=== PATIENT | male | born 1980 | race Caucasian/White ===

== ENCOUNTER 2019-08-04 17:00 | Emergency (ER) | payer SELFPAY ==
--- NOTE | 2019-08-04 17:03 | PDOC ---
Rapid Medical Evaluation Medical Evaluation: 08/04/19 17:02 I have performed a brief in-person evaluation of this patient. The patient presents with a chief complaint of:CP possible worse w/ po intake Pertinent physical exam findings:stable and well román w/ clear chest/lungs I have ordered the following:ekg The patient will proceed to the ED for further evaluation. Discharge Disposition - Diagnosis Chest pain Qualifiers: Chest pain type: unspecified Qualified Code(s): R07.9 - Chest pain, unspecified - Referrals - Patient Instructions - Post Discharge Activity
[2019-08-04 17:22] VITALS: BP 119/72; PULSE 86; TEMP 98.6; BMI 64.5
--- NOTE | 2019-08-04 18:57 | PDOC ---
History of Present Illness - General Chief Complaint: Chest Pain Stated Complaint: CHEST PAIN/ DIFFICLTY BREATHING Time Seen by Provider: 08/04/19 17:11 History Source: Patient Exam Limitations: No Limitations - History of Present Illness Initial Comments: 08/04/19 18:52 HISTORY OF PRESENT ILLNESS: This is an otherwise healthy 39-year-old male presents emergency Department with 4-5 days of left-sided chest pain. Patient reports pain is a constant pressure which she rates at 3/10 but worsens to a 6-7 /10 after he eats. Patient reports the pain had started after taking nonsteroidal medications due to recent dental work he had. Patient reports when he eats and the pain increases and last for approximately 1-1/2-2 hours before returning to his baseline of 3/10. He denies any fevers or chills since the dental procedure. He denies any cough, dizziness, nausea, vomiting or diaphoresis. No recent travel or sick contacts. PAST MEDICAL HISTORY: Denies past medical history SURGICAL HISTORY: Denies ALLERGIES: No known drug allergies REVIEW OF SYSTEMS General/Constitutional: Denies fever or chills. Denies weakness, weight change. HEENT: Denies change in vision. Denies ear pain or discharge. Denies sore throat. Cardiovascular: see HPI Respiratory: Denies cough, wheezing, or hemoptysis. Gastrointestinal: Denies nausea, vomiting, diarrhea or constipation. Denies rectal bleeding. Genitourinary: Denies dysuria, frequency, or change in urination. Musculoskeletal: Denies joint or muscle swelling or pain. Denies neck or back pain. Skin and breasts: Denies rash or easy bruising. Neurologic: Denies headache, vertigo, loss of consciousness, or loss of sensation. Psychiatric: Denies depression or anxiety. Endocrine: Denies increased thirst. Denies abnormal weight change. Hematologic/Lymphatic: Denies anemia, easy bleeding, or history of blood clots. Allergic/Immunologic: Denies hives or skin allergy. Denies latex allergy. PHYSICAL EXAM General Appearance: Well-appearing, appropriately dressed. No apparent distress , no intoxication. HEENT: EOMI, PERRLA, normal ENT inspection, normal voice, TMs normal, pharynx normal. No conjunctival pallor. No photophobia, scleral icterus. Neck: Supple. Trachea midline. No tenderness, rigidity, carotid bruit, stridor , lymphadenopathy, or thyromegaly. Respiratory/Chest: Lungs CTAB. No shortness of breath, chest tenderness, respiratory distress, accessory muscle use. No crackles, rales, rhonchi, stridor , wheezing, dullness Cardiovascular: RRR. S1, S2. No JVD, murmur, bradycardia, tachycardia. Gastrointestinal/Abdominal: Normal bowel sounds. Abdomen soft, non-distended. No tenderness or rebound tenderness. No organomegaly, pulsatile mass, guarding, hernia, hepatomegaly, splenomegaly. Integumentary: Appropriate color, dry, warm. No cyanosis, erythema, jaundice or rash Neurologic: manager mining II-XII intact. Fully oriented, alert. Appropriate mood/affect. Motor strength 5/5. No appreciable EOM palsy, facial droop or sensory deficit. Past History - Past Medical History COPD: No - Immunization History Immunization Up to Date: No - Suicide/Smoking/Psychosocial Hx Smoking History: Never smoked Have you smoked in the past 12 months: No Information on smoking cessation initiated: No Hx Alcohol Use: Yes Drug/Substance Use Hx: No *Physical Exam - Vital Signs Last Vital Signs Temp Pulse Resp BP Pulse Ox 98.6 F 86 18 119/72 100 08/04/19 17:20 08/04/19 17:20 08/04/19 17:20 08/04/19 17:20 08/04/19 17:20 Heart Score/ECG Review - History History: Slightly suspicious - Electrocardiogram EKG: Normal - Age Age: </= 45 - Risk Factors Based on the list above the patient has:: No risk factors known - Troponin Troponin: </= normal limit - Score Heart Score - Total: 0 ED Treatment Course - LABORATORY CBC & Chemistry Diagram: 08/04/19 20:08 08/04/19 20:08 - ADDITIONAL ORDERS Additional order review: 08/04/19 20:08 RBC 5.67 H MCV 85.1 MCHC 33.4 RDW 13.9 MPV 9.8 Neutrophils % 62.2 Lymphocytes % 26.6 Monocytes % 10.5 H Eosinophils % 0.1 Basophils % 0.6 - RADIOLOGY Radiology Studies Ordered: Category Date Time Status CHEST PA & LAT [RAD] Stat Radiology 08/04/19 19:20 Completed - Medications Given in the ED: ED Medications Discontinued Medications Generic Name Dose Route Start Last Admin Trade Name Freq PRN Reason Stop Dose Admin Al Hydroxide/Mg Hydroxide 30 ml 08/04/19 19:20 08/04/19 21:25 Mylanta Oral Suspension - PO 08/04/19 19:21 30 ml ONCE ONE Administration Famotidine/Sodium Chloride 20 mg in 50 mls @ 100 mls/hr 08/04/19 19:20 21:25 Pepcid 20 Mg Premixed Ivpb - IVPB 08/04/19 19:49 100 mls/hr ONCE ONE Administration Sodium Chloride 1,000 mls @ 1,000 mls/hr 08/04/19 19:20 08/04/19 21:25 Normal Saline - IV 08/04/19 20:19 1,000 mls/hr ASDIR STA Administration Medical Decision Making - Medical Decision Making 08/04/19 18:57 A/P: 39-year-old male with chest pain for 4 days H&P is consistent with gastritis brought on by NSAID use. He lives a little likelihood of infectious endocarditis given patient is afebrile here in light of dental work. Labs including cardiac profile and lipase Normal saline 1 L bolus Pepcid 20 mg IV Maalox 30 mL orally Chest x-ray EKG Reassess 08/04/19 22:56 EKG sinus rhythm with rate of 71. Normal intervals noted. No ischemic changes present. He Chest x-ray as read by me: Angles clear. Cardiac silhouette is within normal limits. Hypodense area presents in the right lung base. Lung markings present. No focal infiltrates or consolidations noted. Laboratory testing is unremarkable. I will discharge the patient home to follow-up with his primary doctor. I discussed the physical exam findings, ancillary test results and final diagnoses with the patient. I answered all of the patient's questions. The patient was satisfied with the care received and felt comfortable with the discharge plan and treatment plan. The patient will call their primary care physician within 24 hours to arrange follow-up and will return to the Emergency Department with any new, persistent or worsening symptoms. Portions of this note have been documented using voice recognition software. As a result, errors may occur in the vending route driver process. Effort has been made to correct all grammatical and vending route driver error, but some may have been missed. 08/04/19 23:31 *DC/Admit/Observation/Transfer Diagnosis at time of Disposition: Dyspepsia Chest pain Qualifiers: Chest pain type: unspecified Qualified Code(s): R07.9 - Chest pain, unspecified - Discharge Dispostion Disposition: HOME Condition at time of disposition: Stable Decision to Admit order: No - Referrals - Patient Instructions Printed Discharge Instructions: DI for Atypical Chest Pain Additional Instructions: Rest, drink lots of fluids: Teas, water, soups Vidhi aquiles, carbonated beverages for the bubbles May try peppermint teas Avoid heavy , spicy or fatty foods until symptoms have resolved Continue [id number] medications for symptomatic relief- Maalox, Mylanta Followup with your doctor in one to 2 days as needed Return to emergency department for worsened symptoms, fevers, dehydration - Post Discharge Activity
[2019-08-04] MEDS ORDERED: SODIUM CHLORIDE 1,000 ML IV STA (19:20)
[2019-08-04] MEDS ORDERED: MAG HYDROX/AL HYDROX/SIMETH 30 ML UNIT-DOSE CUP PO ONE (19:20)
[2019-08-04] MEDS ORDERED: FAMOTIDINE 20 MG/50 ML IVPB 20 MG/50 ML MG IVPB ONE ×2 (19:20→21:09)
--- NOTE | 2019-08-04 19:27 | PDOC ---
*Physical Exam - Vital Signs Last Vital Signs Temp Pulse Resp BP Pulse Ox 98.6 F 86 18 119/72 100 08/04/19 17:20 08/04/19 17:20 08/04/19 17:20 08/04/19 17:20 08/04/19 17:20 Heart Score/ECG Review - History History: Slightly suspicious - Electrocardiogram EKG: Normal - Age Age: </= 45 - Risk Factors Based on the list above the patient has:: No risk factors known - Troponin Troponin: </= normal limit - Score Heart Score - Total: 0 Medical Decision Making - Medical Decision Making 08/04/19 19:22 Pt seen with TOBIAS Yves, case reviewed and I agree with the assessment and management with the following summary: 39y/o M p/w 3-4 days heartburn in the setting of daily nsaid use, non- exertional and without SOB. no hematemesis/melena. vss exam as noted, lungs clear, heart normal epigastric discomfort without guarding/rebound 39y/o M with dyspepsia likely 2/2 nsaid use, atypical for ACS and has no risk factors. low risk by heart score. check labs including trop - single level reassuring in light of 3-4 days constant sxs GI meds reassess *DC/Admit/Observation/Transfer Diagnosis at time of Disposition: Dyspepsia Chest pain Qualifiers: Chest pain type: unspecified Qualified Code(s): R07.9 - Chest pain, unspecified - Discharge Dispostion Condition at time of disposition: Stable - Referrals - Patient Instructions - Post Discharge Activity
[2019-08-04 20:41] LABS: BASO % 0.6 % (0-2.0); EOS % 0.1 % (0-4.5); HEMATOCRIT 48.3 % (35.4-49); HEMOGLOBIN 16.1 GM/dL (11.7-16.9); LYMPH % 26.6 % (8-40); MCH 28.5 pg (25.7-33.7); MCHC 33.4 g/dl (32.0-35.9); MEAN CELL VOLUME 85.1 fl (80-96); MEAN PLT VOLUME 9.8 fl (7.5-11.1); MONO % 10.5 % (3.8-10.2); NEUT % 62.2 % (42.8-82.8); PLATELET COUNT 145 K/MM3 (134-434); RBC 5.67 M/mm3 (4.00-5.60); RDW 13.9 % (11.9-15.9); WHITE BLOOD COUNT 7.6 K/mm3 (4.0-10.0)
[2019-08-04 21:06] LABS: ALBUMIN 4.6 g/dl (3.4-5.0); ALK PHOS 96 U/L (45-117); ANION GAP 6 MMOL/L (8-16); BILIRUBIN,TOTAL 0.7 mg/dL (0.2-1); BLOOD UREA NITROGEN 11.8 mg/dL (7-18); CALCIUM 9.5 mg/dL (8.5-10.1); CHLORIDE 104 mmol/L (98-107); CO2 28 mmol/L (21-32); CREATININE 0.9 mg/dL (0.55-1.3); GLUCOSE,RANDOM 88 mg/dL (74-106); LIPASE 129 U/L (73-393); POTASSIUM 3.6 mmol/L (3.5-5.1); SGOT/AST 16 U/L (15-37); SGPT/ALT 43 U/L (13-61); SODIUM 138 mmol/L (136-145); TOT PROT 8.7 g/dl (6.4-8.2)
[2019-08-04] MEDS ORDERED: MAG HYDROX/AL HYDROX/SIMETH 30 ML UNIT-DOSE CUP ONE (21:09)
--- NOTE | 2019-08-06 17:05 | EKG ---
Test Reason : Blood Pressure : / mmHG Vent. Rate : 071 BPM Atrial Rate : 071 BPM P-R Int : 142 ms QRS Dur : 086 ms QT Int : 370 ms P-R-T Axes : 064 072 023 degrees QTc Int : 402 ms NORMAL SINUS RHYTHM POSSIBLE LEFT ATRIAL ENLARGEMENT BORDERLINE ECG NO PREVIOUS ECGS AVAILABLE Confirmed by SIOBHAN BROCK MD ([id number]) on 08/06/2019 5:05:14 PM Referred By: Confirmed By:SIOBHAN BROCK MD
== END 2019-08-04 23:50 | disposition home or self-care (01) ==
LOC: JER 17:00
PROC: 3E033GC Introduction of Other Therapeutic Substance into Peripheral Vein, Percutaneous Approach (ICD-10-PCS; principal; 2019-08-04)
DX: R10.13 Epigastric pain (principal); Z79.1 Long term (current) use of non-steroidal anti-inflammatories (NSAID)
CPT/HCPCS: 36415; 71046-TC-FY; 80053; 82550; 82553; 83690; 84484; 85025; 93005; 93010; 99282-25; J7030